=== PATIENT | male | born 1965 | race Caucasian/White ===

== ENCOUNTER 2020-08-23 08:21 | Emergency (ER) | payer SELFPAY ==
--- NOTE | ~2020-08-23 | XR_ITS ---
EXAMINATION: XR shoulder LT min 2V EXAM DATE: 08/23/2020 09:19 INDICATION: Initial encounter following injury, with pain of the left shoulder. TECHNIQUE: The following left shoulder projections obtained: frontal projection with internal rotatio n, frontal projection with external rotation, Grashey, and scapular Y view (4+ views). There is no p rior study for comparison. FINDINGS: No evidence of left shoulder rotator cuff calcific tendinosis. There is mild to moderate g lenohumeral and acromioclavicular joint primary osteoarthritis. There are no acute fractures or dislo cations identified. There is no subcutaneous gas. The soft tissue is unremarkable. There are no r adiopaque foreign bodies. IMPRESSION: 1. Left shoulder exam without acute osseous findings. 2. Mild to moderate osteoarthritis. Reviewed, dictated and finalized at location [facility].
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
[2020-08-23 08:21] VITALS: BP 143/93; PULSE 89; RESP 18; TEMP 36.7; O2SAT 100
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
[2020-08-23] MEDS: diazePAM INJ (*CRX) 10 MG/2 ML SYRINGE 5 MG IM (09:07)
[2020-08-23] MEDS: ONDANSETRON HCL ODT 4 MG TABLET PO (09:07)
[2020-08-23] MEDS: IBUPROFEN 400 MG TABLET 800 MG PO (12:13)
[2020-08-23 12:16] VITALS: BP 142/91; PULSE 87; O2SAT 96
== END 2020-08-23 12:52 | disposition home or self-care (01) ==
PROVIDERS: Emergency Provider General Practice
DX: M54.2 Cervicalgia (principal); M25.512 Pain in left shoulder; F17.200 Nicotine dependence, unspecified, uncomplicated; K74.60 Unspecified cirrhosis of liver; E11.9 Type 2 diabetes mellitus without complications
CPT/HCPCS: 70450; 72125; 73030; 96372; 99284; A9270; J3360

== ENCOUNTER 2025-06-20 16:38 | Emergency (ER) | payer OTHER, SELFPAY ==
--- NOTE | 2025-06-20 17:13 | PC.NURSE ---
Pt to front maker lockstitch stating I pooped and I feel better, I'm going to leave. PT ambulated to exit using steady gait in NAD
--- OUTSIDE RECORDS SUMMARY | 2025-06-20 18:07 | XMS_ITS | Continuity of Care Document ---
Author Organization [facility] Address [address] [place] [address] [place] [address] Phone Care Team Providers Care Process Engineer Name Role Phone Nicolas Chowdhury MD Unavailable Unavailable Advance Directives Directive Yes / No Effective Date File Name No Information Encounters Encounter Description Practice Location Reason(s) For Visit Diagnoses Date Provider Providers Copied on Encounter [facility], [address] [place], [id number], [place] tel:[phone] [facility] No Information [facility] Val[facility]uela. [address] [place], [place], [id number], [place]. tel:[phone] Family History Family Member Type Diagnosis Age At Onset No Information Payers Payer name Insurance type Covered constitution party ID Authoriza tion(s) No Information Social History Type Description Quantity Date Captured Comments Sex Male Smoking Status No Information Chief Complaint And Reason For Visit No Information Plan Of Treatment Date Type Action Status No Information History Of Present Illness Encounter Date Complaint History Of Prese nt Illness No Information Instructions Date Instruction Additional Infor mation No Information Assessments Type Assessment Date No Information
== END 2025-06-20 18:13 | disposition left against medical advice (07) ==
LOC: ANHED 18:05
PROVIDERS: PCP Family Medicine Adolescent Medicine
DX: R10.9 Unspecified abdominal pain (principal)
CPT/HCPCS: 99199